=== PATIENT | female | born 1965 | race Caucasian/White ===

== ENCOUNTER 2019-02-03 12:26 | Emergency (ER) | payer OTHER ==
[~2019-02-03] VITALS: Ht 152.4 cm; Wt 54.4 kg
[~2019-02-03 12:26] MED LIST: ACCUPRIL PO; AMBIEN 5 MG TABL5 M1 PO; ATIVAN1 MG PO; CELEXA20 MG PO; CLONAZEPAM 1 MG1 M1; NEXIUM40 MG; ONDANSETRON HCL4 M3 PO; QUINU10 PD; VERTICALM25 MG PO; VICODIN 5-5001 EACH PO; VIIBRYD40 MG
[2019-02-03 12:47] LABS: URINE BILIRUBIN NEGATIVE (Negative); URINE BLOOD NEGATIVE (Negative); URINE CLARITY CLEAR; URINE COLOR YELLOW; URINE GLUCOSE-RANDOM NEGATIVE (Negative); URINE KETONES NEGATIVE (Negative); URINE LEUKOCYTES-REFLEX NEGATIVE (Negative); URINE NITRITE-REFLEX NEGATIVE (Negative); URINE PROTEIN NEGATIVE (Negative)
[2019-02-03 13:19] LABS: ABSOLUTE BASOPHILS 0.1 thou/uL (0.0-0.2); ABSOLUTE EOSINOPHILS 0.2 thou/uL (0.0-0.7); ABSOLUTE MONOCYTES 0.6 thou/uL (0.0-1.2); ABSOLUTE NEUTROPHILS 4.6 thou/uL (1.6-8.1); BASOPHILS 0.8 %; EOSINOPHILS 2.8 %; HEMATOCRIT 43.1 % (37.0-47.0); HEMOGLOBIN 14.9 gm/dL (12.0-15.0); LYMPHOCYTES 26.3 %; MCH 30.9 pg (26.0-34.0); MCHC 34.6 g/dL (28.0-37.0); MCV 89.3 fL (80.0-100.0); MONOCYTES 7.9 %; MPV 8.2 fl. (7.2-11.1); NUCLEATED RBCS 0 /100WBC; PLATELET COUNT* 323 thou/uL (150-400); POLYS 62.2 %; RBC 4.82 mil/uL (4.20-5.00); RDW-CV 13.2 % (10.5-14.5); WBC 7.4 thou/uL (4.0-11.0)
[2019-02-03 13:25] LABS: CALCIUM 8.9 mg/dL (8.5-10.1); CREATININE 0.9 mg/dL (0.6-1.3); POTASSIUM 3.4 mmol/L (3.5-5.1)
[2019-02-03 13:27] LABS: APTT 26.5 Seconds (25.0-31.3); PROTIME 9.9 Seconds (9.20-11.50)
[2019-02-03 13:29] LABS: ALBUMIN 3.5 g/dL (3.4-5.0); TOTAL BILIRUBIN 0.2 mg/dL (<0.1-1.0); TOTAL PROTEIN 6.6 g/dL (6.4-8.2)
[2019-02-03] MEDS ORDERED: PHENAZOPYRIDIN200 M2 PO (13:40)
[2019-02-03] MEDS ORDERED: PREDNISONE 20 M20 MG PO (13:42)
[2019-02-03 13:50] VITALS: BP 158/85
== END 2019-02-03 13:51 | disposition home or self-care (01) ==
LOC: M.ERS 12:26
PROVIDERS: Physician Assistant
DX: I10 Essential (primary) hypertension (principal); R30.0 Dysuria; R21 Rash and other nonspecific skin eruption; F41.9 Anxiety disorder, unspecified; F32.9 Major depressive disorder, single episode, unspecified; F17.210 Nicotine dependence, cigarettes, uncomplicated

== ENCOUNTER 2019-02-20 18:31 | Emergency (ER) | payer OTHER ==
[~2019-02-20] VITALS: Ht 152.4 cm; Wt 56.7 kg
[~2019-02-20 18:31] MED LIST changes: +PHENAZOPYRIDIN200 M2 PO; +PREDNISONE 20 M20 MG PO
[2019-02-20] MEDS ORDERED: MEDROLDOSEPACK PO (19:43)
[2019-02-20] MEDS ORDERED: ZYRTEC10 M5 PO (19:43)
[2019-02-20] MEDS ORDERED: NORCO 5-325 TA1 EAC1 PO (19:43)
[2019-02-20] MEDS ORDERED: TESSALON PERLE100 MG PO (19:45)
[2019-02-20] MEDS ORDERED: PREDNISONE 10 M10 MG PO (19:47)
[2019-02-20 20:02] VITALS: BP 181/86
== END 2019-02-20 20:02 | disposition home or self-care (01) ==
LOC: M.ERS 18:31
DX: S22.089A Unspecified fracture of T11-T12 vertebra, initial encounter for closed fracture (principal); I10 Essential (primary) hypertension; F41.9 Anxiety disorder, unspecified; F32.9 Major depressive disorder, single episode, unspecified; F17.210 Nicotine dependence, cigarettes, uncomplicated; W18.39XA Other fall on same level, initial encounter; Y93.89 Activity, other specified; Y92.89 Other specified places as the place of occurrence of the external cause; Y99.8 Other external cause status

== ENCOUNTER 2019-03-09 17:40 | Emergency (ER) | payer OTHER ==
[~2019-03-09] VITALS: Ht 152.4 cm; Wt 56.7 kg
[~2019-03-09 17:40] MED LIST changes: +MEDROLDOSEPACK PO; +NORCO 5-325 TA1 EAC1 PO; +PREDNISONE 10 M10 MG PO; +TESSALON PERLE100 MG PO; +ZYRTEC10 M5 PO
[2019-03-09 17:54] VITALS: BP 164/81
== END 2019-03-09 18:30 | disposition left against medical advice (07) ==
LOC: M.ERS 17:40
DX: S30.0XXA Contusion of lower back and pelvis, initial encounter (principal); I10 Essential (primary) hypertension; F41.9 Anxiety disorder, unspecified; F32.9 Major depressive disorder, single episode, unspecified; F17.210 Nicotine dependence, cigarettes, uncomplicated; V49.69XA Unspecified car occupant injured in collision with other motor vehicles in traffic accident, initial encounter; Y93.89 Activity, other specified; Y92.89 Other specified places as the place of occurrence of the external cause; Y99.8 Other external cause status